=== PATIENT | female | born 1965 | race African-American/Black ===

== ENCOUNTER 2016-10-30 16:10 | Emergency (ER) | payer MEDICAID ==
[~2016-10-30] VITALS: Ht 160 cm; Wt 52.2 kg
[~2016-10-30 16:10] MED LIST: ARIMIDEX1 MG ORAL; AZITHROMYCIN250 MG ORAL; BACTRIM DS TAB1 EAC1 ORAL; DIFLUCAN100 MG ORAL; DOXYCYCLINE MO100 MG ORAL; EXEMESTANE25 MG PO; GABAPENTIN300 MG ORAL; METROGEL-VAGINA70 G1 VAGIN; NITROFURANTOIN100 M2 ORAL; PERCOCET 5-3251 EACH ORAL; PHENAZOPYRIDIN200 MG ORAL; PHENERGAN6.25 MG/5 ORAL; PREDNISONE20 MG ORAL; RANITIDINE HCL150 M2 PO; TRAMADOL HCL50 MG ORAL; [UNRECOGNIZED DRUG - OTHER]
[2016-10-30 16:27] VITALS: BP 122/76
--- NOTE | 2016-10-30 17:18 | Emergency Room Report ---
History of Present Illness General Chief Complaint: Upper Respiratory Illness Source: Patient, Medical Record Present Illness HPI 51-year-old female presents to emergency Department complaining of nasal congestion, with purulent rhinorrhea x7 days patient denies fever she reports chills. Patient reports using Sudafed in addition to Robitussin for congestion , no relief. Patient reports sinus tenderness. denies history of immune compromise, pt. also reports frontal sinus STEVENS 6/10 in severity. Pt. states it is difficult to sleep at night because she absolutely cant breathe out of her nose. Denies CP, Palpitations, LOC, AMS, dizziness, Changes in Vision, Sensation , paresthesias, or a sudden severe headache. Allergies: Coded Allergies: METOCLOPRAMIDE (Verified Adverse Reaction, Intermediate, 10/08/13) panick attack after taking reglan Patient History Past Medical History: see triage record Past Surgical History: none Pertinent Family History: none Last Menstrual Period: h/x of hysterectomy Now: No Immunizations: UTD Reviewed Nursing Documentation: PMH: Agreed, PSxH: Agreed Nursing Documentation-PMH Past Medical History: No History, Except For Hx Hypertension: No Hx Pacemaker: No Hx Asthma: No Hx Cancer: Yes - Left Breast Hx Dialysis: No Hx Cerebrovascular Accident: No Hx Seizures: No Review of Systems All Other Systems: negative except mentioned in HPI Physical Exam Vital Signs Date Time Temp Pulse Resp B/P Pulse Ox O2 Delivery O2 Flow Rate FiO2 10/30/16 16:16 97.9 63 16 122/76 96 Room Air Sp02 EP Interpretation: reviewed, normal General Appearance: no apparent distress, alert, GCS 15, non-toxic Head: normocephalic, atraumatic Eyes: bilateral eye PERRL, bilateral eye normal inspection ENT: hearing grossly normal, normal pharynx, no angioedema, normal voice, uvula midline, moist mucus membranes, nasal congestion - purulent d/c noted in the bilateral nares, pt. has maxillary sinus TTP, no frontal sinus TTP. , other - Pt also has cerumen impaction of the left canal, right canal is WNL Neck: full range of motion, no meningismus, no bony tend, supple/symm/no masses Respiratory: chest non-tender, lungs clear, normal breath sounds, no rhonchi, no respiratory distress, no retraction, no accessory muscle use, no wheezing, speaking full sentences Cardiovascular #1: regular rate, rhythm, no edema Cardiovascular #2: 2+ carotid (R), 2+ carotid (L), 2+ radial (R), 2+ radial (L) , 2+ dorsalis pedis (R), 2+ dorsalis pedis (L) Gastrointestinal: non tender, soft, no guarding, no rebound Rectal: deferred Genitourinary: normal inspection, no CVA tenderness Musculoskeletal: back normal, gait/station normal, normal range of motion, non- tender, no calf tenderness Neurologic: alert, oriented x3, responsive, motor strength/tone normal, sensory intact, speech normal Psychiatric: judgement/insight normal, memory normal, mood/affect normal, no suicidal/homicidal ideation Reflexes: 4+ bicep (R), 4+ bicep (L), 4+ tricep (R), 4+ tricep (L), 4+ knee (R) , 4+ knee (L) Skin: normal color, no rash, warm/dry, well hydrated Lymphatic: no adenopathy Medical Decision Making PA Attestation Dr. Young is my supervising Physician whom patient management has been discussed with. Diagnostic Impression: Primary Impression: Sinusitis nasal Qualified Codes: J01.10 - Acute frontal sinusitis, unspecified Additional Impression: Impacted cerumen of right ear ER Course Pt. presents to the ED c/o nasal congestion with TTP x 7 days no response from decongestants and conservative management, no fevers, reports chills. Ddx considered but are not limited to URI, rebound congestion, sinusitis. Vital signs: Pt. is afebrile, the remaining VS are WNL H&PE are most consistent with Sinusitis will treat with abx due to no response to conservative tx x 7 days, in addition to notable purulent nasal congestion noted on PE. ORDERS: none required at this time, the diagnosis is clinical ED INTERVENTIONS: None required at this time. -D/w pt to d/c use of decongestants as use for more than 3 days can cause rebound congestion. d/w pt to follow up with ENT specialist. DISCHARGE: At this time pt. is stable for d/c to home. Will provide printed patient care instructions, and any necessary prescriptions. Care plan and follow up instructions have been discussed with the patient prior to discharge. Last Vital Signs Date Time Temp Pulse Resp B/P Pulse Ox O2 Delivery O2 Flow Rate FiO2 10/30/16 16:27 97.9 16 122/76 96 Room Air 10/30/16 16:27 63 Disposition: HOME, SELF-CARE Condition: Stable Scripts Carbamide Peroxide (DEBROX) 15 Ml Drops 5 DROP BOTH EARS TWICE A DAY for 4 Days, #15 ML 0 Refills Prov: Susana Moseley 10/30/16 Mometasone Furoate (NASONEX) 17 Gm Powers.pump 2 SPRAYS NASAL DAILY, #17 GM 0 Refills Prov: Susana Moseley 10/30/16 Amoxicillin* (AMOXIL*) 500 Mg Capsule 500 MG ORAL BID for 10 Days, #20 CAP Prov: Susana Moseley 10/30/16 Patient Instructions: Sinusitis, Adult Additional Instructions: Take medications as directed. Follow up with PCP in 3-5 days Follow up with ENT specialist. Return sooner to ED if new symptoms occur, or current symptoms become worse. Susana Moseley Oct 30, 2016 17:18
[2016-10-30] MEDS ORDERED: AMOXICILLIN500 MG ORAL (17:21)
[2016-10-30] MEDS ORDERED: NASONEX17 GM NASAL (17:21)
[2016-10-30] MEDS ORDERED: DEBROX15 M1 BOTH EARS (17:21)
[2016-10-30 17:29] VITALS: BP 122/76
== END 2016-10-30 17:36 | disposition home or self-care (01) ==
LOC: EMR 17:10
DX: J01.10 Acute frontal sinusitis, unspecified (principal); H61.21 Impacted cerumen, right ear; Z90.710 Acquired absence of both cervix and uterus; Z88.8 Allergy status to other drugs, medicaments and biological substances; Z85.3 Personal history of malignant neoplasm of breast
CPT/HCPCS: 99282

== ENCOUNTER 2017-02-06 17:29 | Emergency (ER) | payer MEDICAID ==
[~2017-02-06] VITALS: Ht 157.5 cm; Wt 52.2 kg
[~2017-02-06 17:29] MED LIST changes: +AMOXICILLIN500 MG ORAL; +DEBROX15 M1 BOTH EARS; +NASONEX17 GM NASAL
[2017-02-06 17:51] VITALS: BP 145/83
[2017-02-06] MEDS: Norco 5mg/325mg tab ORAL ONE ×2 (18:06→18:12)
[2017-02-06 18:15] VITALS: BP 145/83
--- NOTE | 2017-02-08 07:34 | Emergency Room Report ---
History of Present Illness General Chief Complaint: Toothache Source: Patient Present Illness HPI 51-year-old female presents ED complaining of tooth pain. Patient states she had tooth extraction performed today a dentist. Had to extract from her right upper jaw. Patient states that dentist only offered her ibuprofen but she states she cannot take ibuprofen. Patient states she needs something stronger. States pain is throbbing, 9/10, nonradiating. No other aggravating or relieving factors. Denies any active bleeding. Denies any other associated symptoms Allergies: Coded Allergies: METOCLOPRAMIDE (Verified Adverse Reaction, Intermediate, 10/08/13) panick attack after taking reglan Patient History Past Medical History: GERD Past Surgical History: none Pertinent Family History: none Social History: Denies: alcohol use, drug use, smoking Last Menstrual Period: hyst Now: No Immunizations: UTD Reviewed Nursing Documentation: PMH: Agreed, PSxH: Agreed Nursing Documentation-PMH Past Medical History: No History, Except For Hx Hypertension: No Hx Pacemaker: No Hx Asthma: No Hx Cancer: Yes - Left Breast Hx Gastrointestinal Problems: Yes - hysterectomy, pancreatitis, gerd Hx Dialysis: No Hx Cerebrovascular Accident: No Hx Seizures: No Review of Systems All Other Systems: negative except mentioned in HPI Physical Exam Vital Signs Date Time Temp Pulse Resp B/P Pulse Ox O2 Delivery O2 Flow Rate FiO2 02/06/17 17:43 98.1 50 18 145/83 98 Room Air Sp02 EP Interpretation: reviewed, normal General Appearance: no apparent distress, alert, GCS 15, non-toxic Head: normocephalic Eyes: bilateral eye PERRL, bilateral eye normal inspection ENT: hearing grossly normal, normal pharynx, no angioedema, normal voice, other - s/p tooth extraction R upper jaw. no active bleeding. clot noted Neck: full range of motion, supple/symm/no masses Respiratory: normal inspection Cardiovascular #1: normal inspection Gastrointestinal: normal inspection Rectal: deferred Genitourinary: no CVA tenderness Musculoskeletal: normal inspection Neurologic: alert, oriented x3, responsive, motor strength/tone normal, sensory intact, speech normal Psychiatric: normal inspection Skin: normal inspection Lymphatic: normal inspection Medical Decision Making Diagnostic Impression: Primary Impression: S/P tooth extraction Qualified Codes: K08.409 - Partial loss of teeth, unspecified cause, unspecified class Additional Impression: Opioid dependence Qualified Codes: F11.20 - Opioid dependence, uncomplicated ER Course 51-year-old female presents ED complaining of tooth pain. s/p extraction Cracked tooth, dental abscess, cavity Patient placed on stretcher. After initial history, physical exam reveals a female in mild distress. There is evidence of a tooth extraction in the right upper jaw. Clot formation noted. No surrounding abscess. No induration or swelling. Patient states she cannot take Motrin. Patient states she took 4 extra strength Tylenol just prior to arrival. I cannot provide her with any additional Tylenol or related tylenol related products at this time I was prepared to provide her prescription given for pain medications but I reviewed CURES the patient is receiving nearly 90 tramadol tablets a month. I explained to patient I cannot right any additional prescriptions at this time. Patient understands and states she will go home Diagnosis- s/p tooth extraction. opioid dependence Stable and discharged to home prescription. Instructed to see dentist. Return to ED if symptoms recur or worse Last Vital Signs Date Time Temp Pulse Resp B/P Pulse Ox O2 Delivery O2 Flow Rate FiO2 02/06/17 18:15 98.1 18 145/83 98 Room Air 02/06/17 17:51 88 Status: improved Disposition: HOME, SELF-CARE Condition: Stable Referrals: NON PHYSICIAN (PCP) Patient Instructions: Dental Pain, Dental Dry Socket SHANNAN JACQUES M.D. Feb 08, 2017 07:34
== END 2017-02-06 18:15 | disposition home or self-care (01) ==
LOC: EMR 18:00
DX: K08.409 Partial loss of teeth, unspecified cause, unspecified class (principal); F11.20 Opioid dependence, uncomplicated; Z88.8 Allergy status to other drugs, medicaments and biological substances; K21.9 Gastro-esophageal reflux disease without esophagitis; Z90.710 Acquired absence of both cervix and uterus; Z85.3 Personal history of malignant neoplasm of breast
CPT/HCPCS: 99282

== ENCOUNTER 2017-10-26 15:15 | Emergency (ER) | payer MEDICAID ==
[~2017-10-26] VITALS: Ht 162.6 cm; Wt 59.0 kg
[2017-10-26] MEDS ORDERED: AZITHROMYCIN250 MG ORAL (16:35)
[2017-10-26] MEDS ORDERED: PROMETH-CODEIN 65 ML PO (16:36)
[2017-10-26 17:00] VITALS: BP 118/70
--- NOTE | 2017-10-27 00:28 | Emergency Room Report ---
History of Present Illness General Chief Complaint: Flu Like Symptoms Source: Patient Present Illness HPI Patient presents emergency department today complaint cough congestion fever going on for one day. She complains of mild sore throat as well associative with some runny stools. Denies any dysuria or frequency. No other complaints are noted. Symptoms noted to be moderate to severe. No other modifying factors. No other associated signs and symptoms. No other complaints were noted. Allergies: Coded Allergies: METOCLOPRAMIDE (Verified Adverse Reaction, Intermediate, 10/08/13) panick attack after taking reglan Patient History Past Medical History: GERD, other - pancreatitis Past Surgical History: none Pertinent Family History: none Social History: Denies: smoking, alcohol use, drug use Reviewed Nursing Documentation: PMH: Agreed, PSxH: Agreed Nursing Documentation-PMH Hx Hypertension: No Hx Pacemaker: No Hx Asthma: No Hx Cancer: Yes - Left Breast Hx Gastrointestinal Problems: Yes - hysterectomy, pancreatitis, gerd Hx Dialysis: No Hx Cerebrovascular Accident: No Hx Seizures: No Review of Systems All Other Systems: negative except mentioned in HPI Physical Exam Vital Signs Date Time Temp Pulse Resp B/P (MAP) Pulse Ox O2 Delivery O2 Flow Rate FiO2 10/26/17 15:26 98.1 96 20 121/74 99 Room Air Sp02 EP Interpretation: reviewed, normal General Appearance: normal inspection, well appearing, no apparent distress, alert Head: atraumatic Eyes: bilateral eye normal inspection ENT: normal ENT inspection, hearing grossly normal, normal voice Neck: normal inspection, full range of motion, supple, no bony tend Respiratory: normal inspection, lungs clear, normal breath sounds, no respiratory distress, no retraction, no wheezing Cardiovascular #1: regular rate, rhythm, no edema Gastrointestinal: normal inspection, normal bowel sounds, non tender, soft, no guarding, no hernia Genitourinary: no CVA tenderness Musculoskeletal: normal inspection, back normal, normal range of motion Neurologic: normal inspection, alert, responsive, speech normal Psychiatric: normal inspection, judgement/insight normal, mood/affect normal Skin: normal inspection, normal color, no rash Medical Decision Making Diagnostic Impression: Primary Impression: Cough Additional Impression: Influenza-like symptoms ER Course Pt presents emergency department today complaining cough congestion. Differential considerations include pneumonia, bronchitis, asthma, COPD just to name a few. Patient's exam consistent with sinusitis or bronchitis. Patient is advised to follow up with primary doctor in 2-3 days and return the emergency room for any worsening symptoms and as needed. Chest X-Ray Diagnostic Results Chest X-Ray Diagnostic Results : Chest X-Ray Ordered: Yes # of Views/Limited/Complete: 1 View Indication: Shortness of Breath EP Interpretation: Yes Interpretation: no consolidation, no effusion, no pneumothorax, no acute cardiopulmonary disease Impression: No acute disease Electronically Signed by: Electronically signed by Komal Sousa MD Last Vital Signs Date Time Temp Pulse Resp B/P (MAP) Pulse Ox O2 Delivery O2 Flow Rate FiO2 10/26/17 17:00 98.1 76 16 118/70 100 Room Air Status: improved Disposition: HOME, SELF-CARE Condition: Stable Scripts Promethazine HCl/Codeine (Prometh-Codein 6.25-10 mg/5 ml) 5 Ml Syrup 5 ML PO Q4HR for 7 Days, ML Prov: KOMAL SOUSA M.D. 10/26/17 Azithromycin* (ZITHROMAX*) 250 Mg Tablet 250 MG ORAL DAILY, #6 TAB 0 Refills Take two tablets by mouth today, then take one tablet by mouth daily for four days Prov: KOMAL SUOSA M.D. 10/26/17 Departure Forms: Return to Work Return to Work Date: Oct 29, 2017 Patient Instructions: Acute Bronchitis, [id number] KOMAL SOUSA M.D. Oct 27, 2017 00:28
== END 2017-10-26 17:00 | disposition home or self-care (01) ==
LOC: EMR 15:52
DX: J11.1 Influenza due to unidentified influenza virus with other respiratory manifestations (principal); K21.9 Gastro-esophageal reflux disease without esophagitis; Z85.3 Personal history of malignant neoplasm of breast
CPT/HCPCS: 71045; 99284

== ENCOUNTER 2017-10-31 16:36 | Emergency (ER) | payer MEDICAID ==
[~2017-10-31] VITALS: Ht 160 cm; Wt 49.9 kg
[~2017-10-31 16:36] MED LIST changes: +PROMETH-CODEIN 65 ML PO
[2017-10-31 16:50] VITALS: BP 108/68
--- NOTE | 2017-10-31 18:05 | Emergency Room Report ---
History of Present Illness General Chief Complaint: Flu Like Symptoms Present Illness HPI 52-year-old female presents to the emergency department complaining of persistent cough x10 days. Patient reports intermittently acting up mucus. Patient denies fevers or chills. She reports she recently finished a course of antibiotics, and was using cough syrup. Patient reports that she has a dry persistent cough that waxes and wanes. Denies high fevers, lethargy, neck stiffness, irritability, dehydration, N/V/D. Denies Cp, Palpitations, LOC, AMS, seizures, paresthesias, or changes in Hearing or vision, no Sudden severe STEVENS. Allergies: Coded Allergies: METOCLOPRAMIDE (Verified Adverse Reaction, Intermediate, 10/08/13) panick attack after taking reglan Patient History Past Medical History: see triage record Past Surgical History: none Pertinent Family History: none Immunizations: UTD Reviewed Nursing Documentation: PMH: Agreed, PSxH: Agreed Nursing Documentation-PMH Hx Hypertension: No Hx Pacemaker: No Hx Asthma: No Hx Cancer: Yes - Left Breast Hx Gastrointestinal Problems: Yes - hysterectomy, pancreatitis, gerd Hx Dialysis: No Hx Cerebrovascular Accident: No Hx Seizures: No Review of Systems All Other Systems: negative except mentioned in HPI Physical Exam Vital Signs Date Time Temp Pulse Resp B/P (MAP) Pulse Ox O2 Delivery O2 Flow Rate FiO2 10/31/17 16:50 98.4 69 20 108/68 99 Room Air Sp02 EP Interpretation: reviewed, normal General Appearance: no apparent distress, alert, GCS 15, non-toxic Head: normocephalic, atraumatic Eyes: bilateral eye normal inspection, bilateral eye PERRL ENT: hearing grossly normal, normal voice Neck: full range of motion Respiratory: chest non-tender, lungs clear, normal breath sounds, speaking full sentences, wheezing - scant/mild expiratory wheezing bilaterally, no ronchi Cardiovascular #1: regular rate, rhythm, normal capillary refill Rectal: deferred Genitourinary: normal inspection Musculoskeletal: back normal, gait/station normal, normal range of motion, non- tender Neurologic: alert, oriented x3, responsive, motor strength/tone normal, sensory intact, speech normal, grossly normal Psychiatric: judgement/insight normal Skin: normal color, no rash, warm/dry, well hydrated Lymphatic: no adenopathy Medical Decision Making PA Attestation Dr. reddy is my supervising Physician whom patient management has been discussed with. Diagnostic Impression: Primary Impression: Cough ER Course 52-year-old female presents to the emergency department complaining of persistent cough x10 days. Patient reports intermittently acting up mucus. Patient denies fevers or chills. She reports she recently finished a course of antibiotics, and was using cough syrup. Patient reports that she has a dry persistent cough that waxes and wanes. Denies high fevers, lethargy, neck stiffness, irritability, dehydration, N/V/D. Denies Cp, Palpitations, LOC, AMS, seizures, paresthesias, or changes in Hearing or vision, no Sudden severe STEVENS. Ddx considered but are not limited to URI, pneumonia, PE, strep pharyngitis, meningitis, bronchitis just to name a few. Vital signs: Pt.is afebrile VS are WNL H&PE are most consistent with bronchitis ORDERS: none required at this time, the diagnosis is clinical ED INTERVENTIONS: None required at this time. -I do not identify an emergent condition at this time. With current presentation , pt. is stable for close outpatient follow up and conservative treatment. D/ w pt. to return promptly to ED with worsening or new symptoms.- Pt. (and or responsible libertarian) verbalizes' understanding and agreement with proposed treatment plan.proposed treatment plan. DISCHARGE: At this time pt. is stable for d/c to home. Will provide printed patient care instructions, and any necessary prescriptions. Care plan and follow up instructions have been discussed with the patient prior to discharge. Chest X-Ray Diagnostic Results Chest X-Ray Diagnostic Results : Chest X-Ray Ordered: Yes # of Views/Limited/Complete: 1 View Indication: Chest Pain EP Interpretation: Yes ELEUTERIO Xray: Interpretation reviewed, by supervising MD, and agrees with findings. Interpretation: no consolidation, no effusion, no pneumothorax, no acute cardiopulmonary disease Impression: No acute disease Electronically Signed by: Susana Moseley PA-C Last Vital Signs Date Time Temp Pulse Resp B/P (MAP) Pulse Ox O2 Delivery O2 Flow Rate FiO2 10/31/17 17:20 69 20 Room Air 10/31/17 16:50 98.4 108/68 99 Disposition: HOME, SELF-CARE Condition: Stable Scripts Albuterol Sulfate* (ALBUTEROL SULFATE MDI*) 8.5 Gm Hfa.aer.ad 2 PUFF INH Q4H, #1 INH 0 Refills Prov: Susana Moseley 10/31/17 Benzonatate* (NATHANAEL MORATAYA*) 100 Mg Capsule 100 MG ORAL THREE TIMES A DAY for 7 Days, #21 PERLE Prov: Susana Moseley 10/31/17 Patient Instructions: Cough, Adult, [id number] Additional Instructions: Take medications as directed. Follow up with a Primary Care Provider in 3-5 days, even if your symptoms have resolved. --Please review list of primary care clinics, if you do not already have a primary care provider - Please note that this Emergency Department Report was dictated using [employer] control officer technology software, occasionally this can lead to erroneous entry secondary to interpretation by the dictation equipment. Susana Moseley Oct 31, 2017 18:05
[2017-10-31] MEDS ORDERED: ALBUTEROL SULF8.5 GM INH (18:06)
[2017-10-31] MEDS ORDERED: TESSALON PERLE100 MG ORAL (18:06)
[2017-10-31 18:25] VITALS: BP 108/68
--- NOTE | 2017-11-01 12:01 | Diagnostic Imaging Report ---
Indication: Dyspnea Comparison: 10/26/2017 A single view chest radiograph was obtained. Findings: Cardiomediastinal appearance is within normal limits for age. Pulmonary vascularity is appropriate. The diaphragmatic contour is smooth and costophrenic angles are sharp. No pleural effusions are identified. The bones are unremarkable. Impression: No acute findings
== END 2017-10-31 18:25 | disposition home or self-care (01) ==
LOC: EMR 18:20
DX: R05 Cough (principal); R07.9 Chest pain, unspecified; Z85.3 Personal history of malignant neoplasm of breast
CPT/HCPCS: 71045; 99284

== ENCOUNTER 2017-12-18 12:40 | Emergency (ER) | payer MEDICAID ==
[~2017-12-18] VITALS: Ht 160 cm; Wt 49.9 kg
[~2017-12-18 12:40] MED LIST changes: +ALBUTEROL SULF8.5 GM INH; +TESSALON PERLE100 MG ORAL
[2017-12-18 13:18] VITALS: BP 112/75
[2017-12-18 13:26] LABS: BASOPHILS % (AUTO) 1.6 % (0.0-2.0); EOSINOPHILS % (AUTO) 0.8 % (0.0-3.0); HEMATOCRIT 39.3 % (37.0-47.0); HEMOGLOBIN 12.5 G/DL (12.0-16.0); LYMPHOCYTES % (AUTO) 37.1 % (20.0-45.0); MEAN CORPUSCULAR VOLUME 105 FL (80-99); MONOCYTES % (AUTO) 6.4 % (1.0-10.0); NEUTROPHILS % (AUTO) 54.2 % (45.0-75.0); PLATELET COUNT 204 K/UL (150-450); RED BLOOD COUNT 3.73 M/UL (4.20-5.40); RED CELL DISTRIBUTION WIDTH 12.1 % (11.6-14.8); WHITE BLOOD COUNT 3.5 K/UL (4.8-10.8)
[2017-12-18 13:27] LABS: APPEARANCE,URINE SLIGHTLY CLOUDY; BILIRUBIN, URINE NEGATIVE (NEGATIVE); COLOR,URINE YELLOW; GLUCOSE, URINE (UA) NEGATIVE (NEGATIVE); KETONES,URINE NEGATIVE (NEGATIVE); LEUKOCYTE ESTERASE ,URINE 3+ (NEGATIVE); NITRITE,URINE NEGATIVE (NEGATIVE); PH,URINE 5 (4.5-8.0); PROTEIN,URINE 1+ (NEGATIVE); UROBILINOGEN,URINE NORMAL MG/DL (0.0-1.0)
--- NOTE | 2017-12-18 13:45 | Emergency Room Report ---
History of Present Illness General Chief Complaint: Abdominal Pain Source: Patient Present Illness HPI 52-year-old female presenting with one month of bowel movement changes. States that she intermittently gets diarrhea for a few days, then gets constipated, then gets diarrhea again. This is associated with some abdominal cramping. Patient states abdominal cramping gets relief with bowel movements. Intermittent nausea but no vomiting. No fever no chills. No black or bloody stools. States that she had a colonoscopy done 2 years ago which was normal Allergies: Coded Allergies: METOCLOPRAMIDE (Verified Adverse Reaction, Intermediate, 10/08/13) panick attack after taking reglan Patient History Past Medical History: see triage record Past Surgical History: none Pertinent Family History: none Last Menstrual Period: Hysterectomy 2012. Reviewed Nursing Documentation: PMH: Agreed, PSxH: Agreed Nursing Documentation-PMH Hx Hypertension: No Hx Pacemaker: No Hx Asthma: No Hx Cancer: Yes - Left Breast CA: Left breast Lumpectomy 2011 Hx Gastrointestinal Problems: Yes - Hysterectomy 2012, Pancreatitis, GERD Hx Dialysis: No Hx Cerebrovascular Accident: No Hx Seizures: No Review of Systems All Other Systems: negative except mentioned in HPI Physical Exam Vital Signs Date Time Temp Pulse Resp B/P (MAP) Pulse Ox O2 Delivery O2 Flow Rate FiO2 12/18/17 12:52 98.1 59 16 112/75 98 Room Air 98.1 Sp02 EP Interpretation: reviewed, normal General Appearance: normal inspection, well appearing, no apparent distress, alert, GCS 15, non-toxic Head: normocephalic, atraumatic Eyes: bilateral eye normal inspection, bilateral eye PERRL, bilateral eye EOMI ENT: normal ENT inspection, normal pharynx, normal voice, moist mucus membranes Neck: normal inspection, full range of motion, supple Respiratory: normal inspection, lungs clear, normal breath sounds, no respiratory distress, no retraction, no wheezing, speaking full sentences, chest symmetrical Cardiovascular #1: normal inspection, regular rate, rhythm, no edema, normal capillary refill Cardiovascular #2: 2+ radial (R), 2+ radial (L) Gastrointestinal: normal inspection, non tender, soft, non-distended, no guarding Musculoskeletal: normal inspection, back normal, normal range of motion, non- tender Neurologic: normal inspection, alert, oriented x3, responsive, motor strength/ tone normal, sensory intact, normal gait, speech normal Psychiatric: normal inspection, judgement/insight normal, memory normal Skin: normal inspection, normal color, no rash, warm/dry, well hydrated, normal turgor Medical Decision Making Diagnostic Impression: Primary Impression: Abdominal cramping ER Course 52-year-old female with intermittent diarrhea and constipation for one mo Differential Diagnosis: Gastritis, gastroenteritis, irritable bowel syndrome Plan: Basic labs, ER course: Patient has remained stable during ED stay. Appears well-hydrated, not in acute distress elevated lipase not adequate for pancreatitis. no epigastric pain. Disposition: Patient is to be discharged to home. Patient is instructed to follow up with gastroenterology in one week Strict return precautions discussed with patient such as fever, chills, worsening/severe abdominal pain, nausea, vomiting, black or bloody stools, which may indicate severe illness. Patient verbalizes understanding and agrees with plan. Please note that this Emergency Department Report was dictated using Splice Machinegravel hauler technology software, occasionally this can lead to erroneous entry secondary to interpretation by the dictation equipment Laboratory Tests Test 12/18/17 13:05 White Blood Count 3.5 K/UL (4.8-10.8) L Red Blood Count 3.73 M/UL (4.20-5.40) L Hemoglobin 12.5 G/DL (12.0-16.0) Hematocrit 39.3 % (37.0-47.0) Mean Corpuscular Volume 105 FL (80-99) H Mean Corpuscular Hemoglobin 33.4 PG (27.0-31.0) H Mean Corpuscular Hemoglobin Concent 31.7 G/DL (32.0-36.0) L Red Cell Distribution Width 12.1 % (11.6-14.8) Platelet Count 204 K/UL (150-450) Mean Platelet Volume 8.0 FL (6.5-10.1) Neutrophils (%) (Auto) 54.2 % (45.0-75.0) Lymphocytes (%) (Auto) 37.1 % (20.0-45.0) Monocytes (%) (Auto) 6.4 % (1.0-10.0) Eosinophils (%) (Auto) 0.8 % (0.0-3.0) Basophils (%) (Auto) 1.6 % (0.0-2.0) Urine Color Yellow Urine Appearance Slightly cloudy Urine pH 5 (4.5-8.0) Urine Specific [place] 1.030 (1.005-1.035) Urine Protein 1+ (NEGATIVE) H Urine Glucose (UA) Negative (NEGATIVE) Urine Ketones Negative (NEGATIVE) Urine Occult Blood 1+ (NEGATIVE) H Urine Nitrite Negative (NEGATIVE) Urine Bilirubin Negative (NEGATIVE) Urine Urobilinogen Normal MG/DL (0.0-1.0) Urine Leukocyte Esterase 3+ (NEGATIVE) H Urine RBC 2-4 /HPF (0 - 2) H Urine WBC 5-10 /HPF (0 - 2) H Urine Squamous Epithelial Cells Few /LPF (NONE/OCC) Urine Bacteria Few /HPF (NONE) Sodium Level 143 MMOL/L (136-145) Potassium Level 3.1 MMOL/L (3.5-5.1) L Chloride Level 104 MMOL/L (98-107) Carbon Dioxide Level 32 MMOL/L (21-32) Anion Gap 7 mmol/L (5-15) Blood Urea Nitrogen 15 mg/dL (7-18) Creatinine 0.7 MG/DL (0.55-1.30) Estimate Glomerular Filtration Rate > 60 mL/min (>60) Glucose Level 92 MG/DL (74-106) Calcium Level 9.6 MG/DL (8.5-10.1) Total Bilirubin 0.4 MG/DL (0.2-1.0) Aspartate Amino Transferase (AST) 19 U/L (15-37) Alanine Aminotransferase (ALT) 26 U/L (12-78) Alkaline Phosphatase 42 U/L (46-116) L Total Protein 7.6 G/DL (6.4-8.2) Albumin 4.6 G/DL (3.4-5.0) Globulin 3.0 g/dL Albumin/Globulin Ratio 1.5 (1.0-2.7) Lipase 564 U/L (73-393) H Last Vital Signs Date Time Temp Pulse Resp B/P (MAP) Pulse Ox O2 Delivery O2 Flow Rate FiO2 12/18/17 13:18 98.1 72 16 112/75 98 Room Air 98.1 Disposition: HOME, SELF-CARE Condition: Improved Patient Instructions: Abdominal Pain, Adult Additional Instructions: PLEASE SEE AUTOMOTIVE ENGINEERING TECHNICIAN IN 1 WEEK Cesar Sky M.D. Dec 18, 2017 13:45
[2017-12-18 14:04] LABS: ANION GAP 7 mmol/L (5-15); BLOOD UREA NITROGEN 15 mg/dL (7-18); CALCIUM 9.6 MG/DL (8.5-10.1); CARBON DIOXIDE 32 MMOL/L (21-32); CHLORIDE 104 MMOL/L (98-107); CREATININE 0.7 MG/DL (0.55-1.30); POTASSIUM 3.1 MMOL/L (3.5-5.1); SODIUM 143 MMOL/L (136-145)
[2017-12-18 14:07] LABS: ALANINE AMINOTRANSFERASE 26 U/L (12-78); ALBUMIN 4.6 G/DL (3.4-5.0); ALBUMIN/GLOBULIN RATIO 1.5 (1.0-2.7); ALKALINE PHOSPHATASE 42 U/L (46-116); ASPARTATE AMINO TRANSFERASE 19 U/L (15-37); BILIRUBIN,TOTAL 0.4 MG/DL (0.2-1.0)
[2017-12-18 14:13] VITALS: BP 118/76
[2017-12-18 14:36] VITALS: BP 118/76
== END 2017-12-18 14:41 | disposition home or self-care (01) ==
LOC: EMR 13:00
DX: R10.9 Unspecified abdominal pain (principal); R19.7 Diarrhea, unspecified; Z85.3 Personal history of malignant neoplasm of breast; Z88.8 Allergy status to other drugs, medicaments and biological substances
CPT/HCPCS: 36415; 80053; 81003; 83690; 85025; 99283

== ENCOUNTER 2018-07-25 13:24 | Emergency (ER) | payer MEDICAID ==
[~2018-07-25] VITALS: Ht 160 cm; Wt 47.6 kg
[2018-07-25 13:40] VITALS: BP 112/64
[2018-07-25] MEDS ORDERED: Ketorolac 30mg Inj IM ONE (13:45)
--- NOTE | 2018-07-25 14:03 | Emergency Room Report ---
History of Present Illness General Chief Complaint: Pain Source: Patient Present Illness HPI 53-year-old female presents to the emergency department complaining of 5 out of 10 in severity pain localized to the base of the left great toe with new onset of pain to the fall of the left foot. Patient reports history of arthritis in the left toe however she states she has been doing a lot of running lately and is now experiencing pain at the ball of her foot. Patient reports tenderness she denies bruising she denies open wounds or blisters. She does are inquiring about steroid injections. denies acute trauma or fall other than repeptitive trauma from running. Denies swelling, erythema or warmth. Allergies: Coded Allergies: METOCLOPRAMIDE (Verified Adverse Reaction, Intermediate, 10/08/13) panick attack after taking reglan Patient History Past Medical History: see triage record Past Surgical History: none Pertinent Family History: none Now: No Reviewed Nursing Documentation: PMH: Agreed; PSxH: Agreed Nursing Documentation-PMH Hx Hypertension: No Hx Pacemaker: No Hx Asthma: No Hx Cancer: Yes - Left Breast CA: Left breast Lumpectomy 2011 Hx Gastrointestinal Problems: Yes - Hysterectomy 2012, Pancreatitis, GERD Hx Dialysis: No Hx Cerebrovascular Accident: No Hx Seizures: No Review of Systems All Other Systems: negative except mentioned in HPI Physical Exam Vital Signs Date Time Temp Pulse Resp B/P (MAP) Pulse Ox O2 Delivery O2 Flow Rate FiO2 07/25/18 13:28 98.1 67 18 112/64 95 Room Air 98.1 Sp02 EP Interpretation: reviewed, normal General Appearance: no apparent distress, alert, GCS 15, non-toxic Head: normocephalic, atraumatic ENT: hearing grossly normal, normal voice Neck: full range of motion Respiratory: lungs clear, normal breath sounds, speaking full sentences Cardiovascular #1: regular rate, rhythm Musculoskeletal: back normal, gait/station normal, normal range of motion, tender - TTP to the plantar aspect of the left foot near base of the great toe, TTP to the ball of the foot, no obvious deformities, left great toe nail is surgically removed. Neurologic: alert, oriented x3, responsive, motor strength/tone normal, sensory intact, speech normal, grossly normal Psychiatric: judgement/insight normal Skin: normal color, no rash, warm/dry, well hydrated Lymphatic: no adenopathy Medical Decision Making PA Attestation Dr. reddy is my supervising Physician whom patient management has been discussed with. Diagnostic Impression: Primary Impression: Foot pain, left ER Course 53-year-old female presents to the emergency department complaining of 5 out of 10 in severity pain localized to the base of the left great toe with new onset of pain to the fall of the left foot. Patient reports history of arthritis in the left toe however she states she has been doing a lot of running lately and is now experiencing pain at the ball of her foot. Patient reports tenderness she denies bruising she denies open wounds or blisters. She does are inquiring about steroid injections. denies acute trauma or fall other than repeptitive trauma from running. Denies swelling, erythema or warmth. Ddx considered but are not limited to Fracture, dislocation, contusion, Sprain/ Strain/Spasm.. Vital signs: are WNL, pt. is afebrile H&PE are most consistent with musculoskeletal injury will perform imaging to r/ o fractures/dislocations. ORDERS: - X-ray left foot 3 views - negative for fx, Dislocation, or significant soft tissue injury, per preliminary read in ED, and signed by ELEUTERIO Moseley, my supervising physician has reviewed, and agrees with my interpretation. ED INTERVENTIONS: - Toradol IM DISCHARGE: At this time pt. is stable for d/c to home. Will provide printed patient care instructions, and any necessary prescriptions. Care plan and follow up instructions have been discussed with the patient prior to discharge. Other X-Ray Diagnostic Results Other X-Ray Diagnostic Results : X-Ray ordered: Left Foot # of Views/Limited Vs Complete: 3 View Indication: Pain EP Interpretation: Yes PA Xray: Interpretation reviewed, by supervising MD, and agrees with findings. Interpretation: no dislocation, no soft tissue swelling, no fractures Impression: No acute disease Electronically Signed by: Susana Moseley PA-C Last Vital Signs Date Time Temp Pulse Resp B/P (MAP) Pulse Ox O2 Delivery O2 Flow Rate FiO2 07/25/18 13:49 98.1 07/25/18 13:40 64 18 112/64 95 Room Air Disposition: HOME, SELF-CARE Condition: Stable Scripts Ibuprofen* (MOTRIN*) 600 Mg Tablet 600 MG ORAL THREE TIMES A DAY, #30 TAB 0 Refills Prov: Susana Moseley 07/25/18 Referrals: [facility] [place] (PCP) Patient Instructions: Foot Sprain Additional Instructions: Take medications as directed. Follow up with a Primary Care Provider in 3-5 days, even if your symptoms have resolved. --Please review list of primary care clinics, if you do not already have a primary care provider Return sooner to ED if new symptoms occur, or current symptoms become worse. - Please note that this Emergency Department Report was dictated using [email or web address] die casting technology software, occasionally this can lead to erroneous entry secondary to interpretation by the dictation equipment. Susana Moseley Jul 25, 2018 14:03
[2018-07-25] MEDS ORDERED: IBUPROFEN600 MG ORAL (14:34)
[2018-07-25 14:46] VITALS: BP 112/64
--- NOTE | 2018-07-25 14:51 | Diagnostic Imaging Report ---
Indication: Foot pain Comparison: None Findings: 3 views of the left foot were obtained. No acute fractures, malalignment, erosions or periostitis are identified. Soft tissues are unremarkable. Impression: No acute findings
== END 2018-07-25 14:53 | disposition home or self-care (01) ==
LOC: EMR 13:45
DX: M79.672 Pain in left foot (principal); K21.9 Gastro-esophageal reflux disease without esophagitis; Z85.3 Personal history of malignant neoplasm of breast; Z90.710 Acquired absence of both cervix and uterus
CPT/HCPCS: 73630; 96372; 99283; J1885

== ENCOUNTER 2018-09-14 16:07 | Emergency (ER) | payer MEDICAID ==
[~2018-09-14] VITALS: Ht 160 cm; Wt 47.6 kg
[~2018-09-14 16:07] MED LIST changes: +IBUPROFEN600 MG ORAL
[2018-09-14 16:26] VITALS: BP 108/69
--- NOTE | 2018-09-14 16:50 | Emergency Room Report ---
History of Present Illness General Chief Complaint: Flu Like Symptoms Source: Patient Present Illness HPI 53-year-old female presents to the emergency department complaining of nasal congestion with sinus pressure bilaterally across the front of her face. Patient reports persistent sneezing in addition to watery eyes. Patient denies sore throat, headache, fevers, chills, photophobia, cough, neck pain or stiffness. Patient reports she has had history of hayfever in the past which felt similar. Patient denies pain at this time. She denies unilateral symptoms. She states that she has been using OTC medication such as Vicks, Claritin, and DayQuil with no relief. pt. reports symptoms worse at night and making it difficult to sleep as she cant breathe through her nose. Pt. denies purulent drainage, and reports rhinorrhea is minimal. Allergies: Coded Allergies: METOCLOPRAMIDE (Verified Adverse Reaction, Intermediate, 10/08/13) panick attack after taking reglan Patient History Past Medical History: see triage record Past Surgical History: none Pertinent Family History: none Last Menstrual Period: historectomy 2013 Now: No Immunizations: UTD Reviewed Nursing Documentation: PMH: Agreed; PSxH: Agreed Nursing Documentation-PMH Hx Hypertension: No Hx Pacemaker: No Hx Asthma: No Hx Cancer: Yes - Left Breast CA: Left breast Lumpectomy 2011 Hx Gastrointestinal Problems: Yes - Hysterectomy 2012, Pancreatitis, GERD Hx Dialysis: No Hx Cerebrovascular Accident: No Hx Seizures: No Review of Systems All Other Systems: negative except mentioned in HPI Physical Exam Vital Signs Date Time Temp Pulse Resp B/P (MAP) Pulse Ox O2 Delivery O2 Flow Rate FiO2 09/14/18 16:18 66 18 108/69 99 Room Air 09/14/18 16:26 98.1 09/14/18 16:26 99 Sp02 EP Interpretation: reviewed, normal General Appearance: no apparent distress, alert, GCS 15, non-toxic Head: normocephalic, atraumatic Eyes: bilateral eye normal inspection, bilateral eye PERRL ENT: hearing grossly normal, normal pharynx, no angioedema, normal voice, TMs + canals normal, uvula midline, moist mucus membranes, nasal congestion Neck: full range of motion Respiratory: lungs clear, normal breath sounds, no respiratory distress, no accessory muscle use, no wheezing, speaking full sentences Cardiovascular #1: regular rate, rhythm, no edema Musculoskeletal: back normal, gait/station normal, normal range of motion, non- tender Neurologic: alert, oriented x3, responsive, motor strength/tone normal, sensory intact, speech normal, grossly normal Psychiatric: judgement/insight normal Skin: normal color, no rash, warm/dry, well hydrated Lymphatic: no adenopathy Medical Decision Making PA Attestation Dr. Collins is my supervising Physician whom patient management has been discussed with. Diagnostic Impression: Primary Impression: Rhinitis, allergic Qualified Codes: J30.9 - Allergic rhinitis, unspecified Additional Impression: Congestion of nasal sinus ER Course 53-year-old female presents to the emergency department complaining of nasal congestion with sinus pressure bilaterally across the front of her face. Patient reports persistent sneezing in addition to watery eyes. Patient denies sore throat, headache, fevers, chills, photophobia, cough, neck pain or stiffness. Patient reports she has had history of hayfever in the past which felt similar. Patient denies pain at this time. She denies unilateral symptoms. She states that she has been using OTC medication such as Vicks, Claritin, and DayQuil with no relief. pt. reports symptoms worse at night and making it difficult to sleep as she cant breathe through her nose. Pt. denies purulent drainage, and reports rhinorrhea is minimal. Ddx considered but are not limited to: Rhinitis, Nasal Congestion, Sinusitis, FB , URI just to name a few. Vital signs: are WNL, pt. is afebrile H&PE are most consistent with: Rhinitis with nasal congestion ORDERS: None required at this time as the diagnosis is clinical ED INTERVENTIONS: none required at this time. DISCHARGE: At this time pt. is stable for d/c to home. Will provide printed patient care instructions, and any necessary prescriptions. Care plan and follow up instructions have been discussed with the patient prior to discharge. Last Vital Signs Date Time Temp Pulse Resp B/P (MAP) Pulse Ox O2 Delivery O2 Flow Rate FiO2 09/14/18 16:26 66 18 Room Air 99 09/14/18 16:26 98.1 108/69 99 Disposition: HOME, SELF-CARE Condition: Stable Scripts Oxymetazoline HCl (Afrin) 15 Ml [place] 2 SPRAYS NASAL TWICE A DAY for 3 Days, #30 SPRAY Prov: Susana Moseley 09/14/18 Cetirizine Hcl/Pseudoephedrine (ZYRTEC-D TABLET) 1 Each Tab.er.12h 1 EACH ORAL Q12HR for 7 Days, #14 TAB Prov: Susana Moseley 09/14/18 Referrals: [facility] [place] (PCP) Patient Instructions: Allergic Rhinitis Additional Instructions: DO NOT USE FOR MORE THAN 3 CONSECUTIVE DAYS. Take medications as directed. Follow up with a Primary Care Provider in 3-5 days, even if your symptoms have resolved. --Please review list of primary care clinics, if you do not already have a primary care provider Return sooner to ED if new symptoms occur, or current symptoms become worse. - Please note that this Emergency Department Report was dictated using Qbakapaper folder technology software, occasionally this can lead to erroneous entry secondary to interpretation by the dictation equipment. Susana Moseley Sep 14, 2018 16:50
[2018-09-14] MEDS ORDERED: AFRIN NASAL SPR30 ML NASAL (16:56)
[2018-09-14] MEDS ORDERED: ZYRTEC-D TABLE1 EACH ORAL (16:56)
[2018-09-14 17:13] VITALS: BP 112/72
[2018-09-14 17:17] VITALS: BP 112/72
== END 2018-09-14 17:10 | disposition home or self-care (01) ==
LOC: EMR 16:40
DX: J30.9 Allergic rhinitis, unspecified (principal); K21.9 Gastro-esophageal reflux disease without esophagitis; Z85.3 Personal history of malignant neoplasm of breast; Z90.710 Acquired absence of both cervix and uterus
CPT/HCPCS: 99283

== ENCOUNTER 2019-03-19 18:01 | Emergency (ER) | payer MEDICAID ==
[~2019-03-19] VITALS: Ht 160 cm; Wt 49.9 kg
[~2019-03-19 18:01] MED LIST changes: +AFRIN NASAL SPR30 ML NASAL; +ZYRTEC-D TABLE1 EACH ORAL
[2019-03-19 18:16] VITALS: BP 111/73
[2019-03-19] MEDS ORDERED: TYLENOL EXTRA500 MG ORAL (18:32)
[2019-03-19] MEDS ORDERED: AMOXICILLIN500 MG ORAL (18:32)
[2019-03-19 18:45] VITALS: BP 111/73
--- NOTE | 2019-03-19 18:47 | NUR ---
ER DISCHARGE NOTE: Patient is cleared to be discharged per ERMD, pt is aox4, on room air, with stable vital signs. pt was given dc and prescription instructions, pt was able to verbalize understanding, pt is able to ambulate with steady gait. pt took all belongings.
--- NOTE | 2019-03-21 07:07 | Emergency Room Report ---
History of Present Illness General Chief Complaint: Toothache Source: Patient Present Illness HPI 53-year-old female presents ED for evaluation. Complaining of toothache which started this morning. Notes pain in her right upper jaw radiating to her ear. Pain is sharp, 8 out of 10. States that when this happened previously she was prescribed antibiotics and it resolved. Denies fevers or chills. Denies neck pain or neck stiffness. Denies sore throat or cough. No other aggravating relieving factors. Denies any other associated symptoms Allergies: Coded Allergies: METOCLOPRAMIDE (Verified Adverse Reaction, Intermediate, 10/08/13) panick attack after taking reglan Patient History Past Medical History: GERD, other - L breast ca Past Surgical History: none Pertinent Family History: none Social History: Denies: smoking, alcohol use, drug use Last Menstrual Period: hyst Now: No Immunizations: UTD Reviewed Nursing Documentation: PMH: Agreed; PSxH: Agreed Nursing Documentation-PMH Past Medical History: No History, Except For Hx Hypertension: No Hx Pacemaker: No Hx Asthma: No Hx Cancer: Yes - Left Breast CA: Left breast Lumpectomy 2011 Hx Gastrointestinal Problems: Yes - Hysterectomy 2013, Pancreatitis, GERD Hx Dialysis: No Hx Cerebrovascular Accident: No Hx Seizures: No Review of Systems All Other Systems: negative except mentioned in HPI Physical Exam Vital Signs Date Time Temp Pulse Resp B/P (MAP) Pulse Ox O2 Delivery O2 Flow Rate FiO2 03/19/19 18:11 98.2 64 20 111/73 (86) 97 Room Air Sp02 EP Interpretation: reviewed, normal General Appearance: no apparent distress, alert, GCS 15, non-toxic Head: normocephalic Eyes: bilateral eye normal inspection, bilateral eye PERRL ENT: hearing grossly normal, normal pharynx, no angioedema, normal voice, TMs + canals normal, uvula midline, other - multiple dental caries Neck: normal inspection Respiratory: normal inspection Cardiovascular #1: normal inspection Gastrointestinal: normal inspection Rectal: deferred Genitourinary: no CVA tenderness Musculoskeletal: normal inspection Neurologic: alert, oriented x3, responsive, motor strength/tone normal, sensory intact, speech normal Psychiatric: normal inspection Skin: normal inspection Lymphatic: normal inspection Medical Decision Making Diagnostic Impression: Primary Impression: Toothache Additional Impression: Opioid dependence Qualified Codes: F11.29 - Opioid dependence with unspecified opioid-induced disorder ER Course 53 y F presents to ED c/o tooth pain Cracked tooth, dental abscess, cavity Patient placed on stretcher. After initial history, physical exam reveals a female in mild distress. There are multiple dental caries but no obvious dental abscess or infected tooth. Remainder of exam unremarkable. Discussed findings with patient. We'll discharge with antibiotics on review of CURES there is concern for some monthly narcotic prescriptions Safe for discharge or close outpatient follow-up. I'll provide dental referrals Diagnosis- toothache, opioid dependence Stable and discharged to home prescription for amoxicillin, tylneol. Instructed to see dentist as a walk-in this week. Return to ED if symptoms recur or worse Last Vital Signs Date Time Temp Pulse Resp B/P (MAP) Pulse Ox O2 Delivery O2 Flow Rate FiO2 03/19/19 18:45 98.2 80 20 111/73 97 Room Air Status: improved Disposition: HOME, SELF-CARE Condition: Stable Scripts Acetaminophen* (TYLENOL EXTRA STRENGTH*) 500 Mg Tablet 500 MG ORAL Q8H PRN for Prn Headache/Temp > 101, #30 TAB 0 Refills Prov: Eyal Castelan MD 03/19/19 Amoxicillin* (AMOXIL*) 500 Mg Capsule 500 MG ORAL THREE TIMES A DAY, #21 CAP Prov: Eyal Castelan MD 03/19/19 Referrals: [facility] [place] (PCP) [facility](age 2-12) - Orthodontic Clinic - Hours: Sun,Sun,, 8:15am and 1pm (new patient screening), . 1pm. Emergency clinic Sunday - Sunday 8:30am and 1pm, Tues. 1pm. *Call to check if clinic is open; No appointment necessary for the first visit ( new patient screening), Arrive 15-30 minutes early as it is first come, first serve. Patient Instructions: Dental Pain Eyal Castelan MD March 21, 2019 07:07
== END 2019-03-19 18:50 | disposition home or self-care (01) ==
LOC: EMR 18:40
DX: K08.89 Other specified disorders of teeth and supporting structures (principal); F11.29 Opioid dependence with unspecified opioid-induced disorder; Z88.8 Allergy status to other drugs, medicaments and biological substances; K21.9 Gastro-esophageal reflux disease without esophagitis; Z85.3 Personal history of malignant neoplasm of breast; Z90.710 Acquired absence of both cervix and uterus; K02.9 Dental caries, unspecified
CPT/HCPCS: 99282

== ENCOUNTER 2019-05-29 13:14 | Emergency (ER) | payer MEDICAID ==
[~2019-05-29] VITALS: Ht 160 cm; Wt 52.2 kg
[~2019-05-29 13:14] MED LIST changes: +TYLENOL EXTRA500 MG ORAL
--- NOTE | 2019-05-29 13:37 | NUR ---
ED Nurse Note:pt rleates she has frequent uti. relates feeling of needing to void immediately after voiding and uncomfortable sensation post void x 3 weeks. no hematuria no vaginal c/o.
[2019-05-29 14:13] LABS: APPEARANCE,URINE SLIGHTLY CLOUDY; BILIRUBIN, URINE NEGATIVE (NEGATIVE); GLUCOSE, URINE (UA) NEGATIVE (NEGATIVE); KETONES,URINE NEGATIVE (NEGATIVE); LEUKOCYTE ESTERASE ,URINE 2+ (NEGATIVE); NITRITE,URINE NEGATIVE (NEGATIVE); PH,URINE 6 (4.5-8.0); PROTEIN,URINE 1+ (NEGATIVE); UROBILINOGEN,URINE 1 MG/DL (0.0-1.0)
[2019-05-29 14:18] LABS: COLOR,URINE YELLOW
--- NOTE | 2019-05-29 14:27 | Emergency Room Report ---
History of Present Illness General Chief Complaint: Female Urogenital Problems Source: Patient Present Illness HPI 54-year-old postmenopausal female with no significant past medical history here complaining of 3 weeks of urinary frequency, urgency, and pain after voiding. Patient denies flank pain, suprapubic pain, nausea vomiting, fever and chills. Has not taken medication for her symptoms. Denies hematuria or vaginal spotting. Denies having frequent urinary tract infections. Denies chest pain, shortness of breath, palpitation, and other associated symptoms. Allergies: Coded Allergies: METOCLOPRAMIDE (Verified Adverse Reaction, Intermediate, 10/08/13) panick attack after taking reglan Patient History Past Medical History: see triage record Past Surgical History: unable to obtain Pertinent Family History: none Last Menstrual Period: hyst Now: No Immunizations: UTD Reviewed Nursing Documentation: PMH: Agreed; PSxH: Agreed Nursing Documentation-PMH Past Medical History: No History, Except For Hx Hypertension: No Hx Pacemaker: No Hx Asthma: No Hx Cancer: Yes - Left Breast CA: Left breast Lumpectomy 2011 Hx Gastrointestinal Problems: Yes - Hysterectomy 2012, Pancreatitis, GERD Hx Dialysis: No Hx Cerebrovascular Accident: No Hx Seizures: No Review of Systems All Other Systems: negative except mentioned in HPI Physical Exam Vital Signs Date Time Temp Pulse Resp B/P (MAP) Pulse Ox O2 Delivery O2 Flow Rate FiO2 05/29/19 13:25 98.6 55 19 136/83 (100) 99 Room Air Sp02 EP Interpretation: reviewed, normal General Appearance: normal inspection, well appearing, no apparent distress, alert, GCS 15 Head: normocephalic, atraumatic Eyes: bilateral eye normal inspection, bilateral eye PERRL ENT: normal ENT inspection, hearing grossly normal, normal pharynx Neck: normal inspection, full range of motion, supple Respiratory: normal inspection, chest non-tender, lungs clear, no retraction, no wheezing Cardiovascular #1: normal inspection, no edema, no murmur, normal capillary refill Gastrointestinal: normal inspection, non tender, soft Genitourinary: no CVA tenderness Neurologic: normal inspection, alert, oriented x3 Psychiatric: normal inspection, judgement/insight normal Skin: no rash Lymphatic: normal inspection, no adenopathy Medical Decision Making PA Attestation All diagnoses and treatment plans were reviewed and discussed with my supervising physician Dr. Luu Diagnostic Impression: Primary Impression: UTI (urinary tract infection) ER Course 54-year-old postmenopausal female with no significant past medical history here complaining of 3 weeks of urinary frequency, urgency, and pain after voiding. Patient denies flank pain, suprapubic pain, nausea vomiting, fever and chills. Has not taken medication for her symptoms. Denies hematuria or vaginal spotting. Denies having frequent urinary tract infections. Denies chest pain, shortness of breath, palpitation, and other associated symptoms. Ddx considered but are not limited to: UTI, pyelonephritis, urinary incontinence , prolapsed bladder Vital signs: are WNL, pt. is afebrile H&PE are most consistent with: Uncomplicated UTI ORDERS: UA, urine cx, Macrobid ED INTERVENTIONS: None required at this time. DISCHARGE: At this time pt. is stable for d/c to home. Will provide printed patient care instructions, and any necessary prescriptions. Care plan and follow up instructions have been discussed with the patient prior to discharge. Patient to follow-up with her primary care provider if symptoms continue increase oral hydration return to emergency room if worsening symptoms. Last Vital Signs Date Time Temp Pulse Resp B/P (MAP) Pulse Ox O2 Delivery O2 Flow Rate FiO2 05/29/19 13:25 98.6 55 19 136/83 (100) 99 Room Air Disposition: HOME, SELF-CARE Condition: Stable Scripts Nitrofurantoin Monohyd/M-Cryst* (MACROBID 100 MG*) 100 Mg Capsule 100 MG ORAL EVERY 12 HOURS for 7 Days, #14 CAP Prov: Elie Jackson 05/29/19 Patient Instructions: Urinary Tract Infection Additional Instructions: Take medication as directed follow-up with your primary care provider if symptoms continue if fever and chills, flank pain return to the emergency room. Elie Jackson May 29, 2019 14:27
[2019-05-29] MEDS ORDERED: NITROFURANTOIN100 M2 ORAL (14:30)
[2019-05-29 14:42] VITALS: BP 136/83
--- NOTE | 2019-05-29 14:42 | NUR ---
ER DISCHARGE NOTE: Patient is cleared to be discharged per ERMD, pt is aox4, on room air, with stable vital signs. pt was given dc and prescription instructions, pt was able to verbalize understanding, pt id band removed without complications. pt is able to ambulate with steady gait. pt took all belongings.
== END 2019-05-29 14:42 | disposition home or self-care (01) ==
LOC: EMR 14:25
DX: N39.0 Urinary tract infection, site not specified (principal); K21.9 Gastro-esophageal reflux disease without esophagitis; Z85.3 Personal history of malignant neoplasm of breast; Z90.710 Acquired absence of both cervix and uterus
CPT/HCPCS: 81001; 87086; 99283

== ENCOUNTER 2020-07-14 15:41 | Emergency (ER) | payer MEDICAID ==
[~2020-07-14] VITALS: Ht 160 cm; Wt 49.9 kg
--- NOTE | 2020-07-14 16:02 | NUR ---
ED Nurse Note: pt presents to ED c/o R earache x 5 days, pt reports the pain comes and goes and when it is there it is "sharp" in nature. denies any pain currently, denies any drainage coming from ear, no loss of balance, STEVENS or vertigo at this time. pt mentions that she put a q-tip in affected ear this AM and that it caused "more px than nl"
[2020-07-14 16:04] VITALS: BP 144/72
--- NOTE | 2020-07-14 16:18 | Emergency Room Report ---
History of Present Illness General Chief Complaint: Earache Present Illness HPI 55 YO Female presents to the ED c/o 05/31 in severity left ear pain that has progressed over 5 days. Pt. reports she has been taking Tylenol PO and it helps but her pain returns. Pt. reports she attempted to use a q-tip but did not have any relief, just exacerbation of her pain. Pt. states she has not measured any fevers. She reports chills. She denies neck pain or stiffness. Pt. denies STEVENS. She denies swollen tender lymph nodes. Pt. Denies external ear tenderness. She denies d/c. She denies loss of hearing in the affected ear. Allergies: Coded Allergies: METOCLOPRAMIDE (Verified Adverse Reaction, Intermediate, 10/08/13) panick attack after taking reglan COVID-19 Screening Contact w/high risk pt: No Experienced COVID-19 symptoms?: No COVID-19 Testing performed RUBBISH COLLECTOR: No Patient History Past Medical History: see triage record Past Surgical History: none Pertinent Family History: none Now: No Reviewed Nursing Documentation: PMH: Agreed; PSxH: Agreed Nursing Documentation-PMH Hx Hypertension: No Hx Pacemaker: No Hx Asthma: No Hx Cancer: Yes - Left Breast CA: Left breast Lumpectomy 2011 Hx Gastrointestinal Problems: Yes - Hysterectomy 2012, Pancreatitis, GERD Hx Dialysis: No Hx Cerebrovascular Accident: No Hx Seizures: No Review of Systems All Other Systems: negative except mentioned in HPI Physical Exam Vital Signs Date Time Temp Pulse Resp B/P (MAP) Pulse Ox O2 Delivery O2 Flow Rate FiO2 07/14/20 15:55 97.3 55 18 144/72 (96) 95 Room Air Sp02 EP Interpretation: reviewed, normal General Appearance: no apparent distress, alert, GCS 15, non-toxic Head: normocephalic, atraumatic Eyes: bilateral eye normal inspection, bilateral eye PERRL ENT: hearing grossly normal, normal pharynx, normal voice, TMs + canals normal, uvula midline, other - otitis media of the left TM, excessive cerumen as well. No external tenderness. the Right TM and Canal are WNL. Neck: full range of motion Respiratory: lungs clear, normal breath sounds, speaking full sentences Cardiovascular #1: regular rate, rhythm Musculoskeletal: back normal, normal range of motion, gait/station normal, non-tender Neurologic: alert, motor strength/tone normal, oriented x3, sensory intact, responsive, speech normal Psychiatric: judgement/insight normal Skin: no rash, normal color Lymphatic: no adenopathy Procedures Additional Procedure Procedure Narrative Verbal consent was obtained by the pt. Excessive cerumen was removed maually from the left ear canal using sterile ear curette. Scant amount remains deeper in the canal, TM is now visualized. The patient tolerated well and there were no complications. Medical Decision Making PA Attestation Dr. Dickey is my supervising Physician whom patient management has been discussed with. Diagnostic Impression: Primary Impression: Otitis media Qualified Codes: H66.92 - Otitis media, unspecified, left ear Additional Impression: Excessive cerumen in left ear canal ER Course 55 YO Female presents to the ED c/o 05/31 in severity left ear pain that has progressed over 5 days. Pt. reports she has been taking Tylenol PO and it helps but her pain returns. Pt. reports she attempted to use a q-tip but did not have any relief, just exacerbation of her pain. Pt. states she has not measured any fevers. She reports chills. She denies neck pain or stiffness. Pt. denies STEVENS. She denies swollen tender lymph nodes. Pt. Denies external ear tenderness. She denies d/c. She denies loss of hearing in the affected ear. Ddx considered but are not limited to OM, OE, mastoiditis, TM perforation, FB, excessive cerumen Vital signs: are WNL, pt. is afebrile H&PE are most consistent with otitis media of the left TM- the TM is erythematous and bulging, excessive cerumen as well. No external tenderness. the Right TM and Canal are WNL. ORDERS: none required at this time, the diagnosis is clinical ED INTERVENTIONS: None required at this time. DISCHARGE: At this time pt. is stable for d/c to home. With PO ABX. Will provide printed patient care instructions, and any necessary prescriptions. Care plan and follow up instructions have been discussed with the patient prior to discharge. Last Vital Signs Date Time Temp Pulse Resp B/P (MAP) Pulse Ox O2 Delivery O2 Flow Rate FiO2 07/14/20 16:04 97.3 86 18 144/72 95 Room Air Status: improved Disposition: HOME, SELF-CARE Condition: Stable Scripts Amoxicillin/Potassium Clav 400-57 Tab Chew (AMOX TR-K CLV 400-57 TAB CHEW) 1 Each Tab.chew 2 TAB ORAL EVERY 12 HOURS for 10 Days, #40 TAB Prov: Susana Moseley 07/14/20 Referrals: [facility] Patient Instructions: Cerumen Impaction, Otitis Media, Adult, [id number] Additional Instructions: Take medications as directed. Follow up with a Primary Care Provider in 3-5 days, even if your symptoms have resolved. --Please review list of primary care clinics, if you do not already have a primary care provider Return sooner to ED if new symptoms occur, or current symptoms become worse. - Please note that this Emergency Department Report was dictated using [employer]circulation analyst technology software, occasionally this can lead to erroneous entry secondary to interpretation by the dictation equipment. Susana Moseley Jul 14, 2020 16:18
[2020-07-14] MEDS ORDERED: AUGMENTIN 875-1 EAC1 ORAL (16:22)
[2020-07-14 16:30] VITALS: BP 144/72
[2020-07-14] MEDS ORDERED: AMOX TR-K CLV1 EAC3 ORAL (19:49)
== END 2020-07-14 16:30 | disposition home or self-care (01) ==
LOC: EMR 15:55
DX: H66.92 Otitis media, unspecified, left ear (principal); H61.22 Impacted cerumen, left ear; Z90.710 Acquired absence of both cervix and uterus; Z85.3 Personal history of malignant neoplasm of breast; Z88.8 Allergy status to other drugs, medicaments and biological substances
CPT/HCPCS: 69210; Z7502; 99282

== ENCOUNTER 2020-09-01 13:44 | Emergency (ER) | payer MEDICAID ==
[~2020-09-01] VITALS: Ht 160 cm; Wt 52.2 kg
[~2020-09-01 13:44] MED LIST changes: +AMOX TR-K CLV1 EAC3 ORAL; +AUGMENTIN 875-1 EAC1 ORAL
[2020-09-01 13:55] VITALS: BP 125/80
--- NOTE | 2020-09-01 13:55 | NUR ---
ED Nurse Note: Patient walked in to ER due to left earache x 2 days. Denies difficulty hearing. AAOx4,verbally responsive. No SOB, on room air. Afebrile.
--- NOTE | 2020-09-01 14:19 | Emergency Room Report ---
History of Present Illness General Chief Complaint: Earache Present Illness HPI Pt. presents to the ED c/o 6/10 in severity intermittent 5/10 in severity Left ear pain x 3 day(s). PT. w. hx of increased ear wax often. PT. reports environmental allergies. She reports having some nasal congestion a few days prior. She denies external ear tenderness. She denies fevers or chills. She denies ringing in the ears or loss of hearing. She denies cough, ST, neck pain/stiffness. She denies STEVENS or dizziness. Pt. denies ear trauma. She reports pain is intermittent and resolves spontaneously. Allergies: Coded Allergies: METOCLOPRAMIDE (Verified Adverse Reaction, Intermediate, 10/08/13) panick attack after taking reglan COVID-19 Screening Contact w/high risk pt: No Experienced COVID-19 symptoms?: No COVID-19 Testing performed PHARMACY COORDINATOR: No Patient History Past Medical History: see triage record Past Surgical History: none Pertinent Family History: none Now: No Reviewed Nursing Documentation: PMH: Agreed; PSxH: Agreed Nursing Documentation-PMH Hx Hypertension: No Hx Pacemaker: No Hx Asthma: No Hx Cancer: Yes - Left Breast CA: Left breast Lumpectomy 2011 Hx Gastrointestinal Problems: Yes - Hysterectomy 2012, Pancreatitis, GERD Hx Dialysis: No Hx Cerebrovascular Accident: No Hx Seizures: No Review of Systems All Other Systems: negative except mentioned in HPI Physical Exam Vital Signs Date Time Temp Pulse Resp B/P (MAP) Pulse Ox O2 Delivery O2 Flow Rate FiO2 09/01/20 13:47 98.4 67 18 125/80 (95) 96 Room Air Sp02 EP Interpretation: reviewed, normal General Appearance: no apparent distress, alert, GCS 15, non-toxic Head: normocephalic, atraumatic Eyes: bilateral eye normal inspection, bilateral eye PERRL ENT: hearing grossly normal, normal pharynx, normal voice, uvula midline, other - mild increased cerumen, Normal TM and Canal Bilaterally. NO external ear tenderness. no evidence of mastoiditis. Neck: full range of motion, no meningismus, no bony tend Respiratory: lungs clear, normal breath sounds, speaking full sentences Cardiovascular #1: regular rate, rhythm Musculoskeletal: back normal, normal range of motion, gait/station normal, non- tender Neurologic: alert, motor strength/tone normal, oriented x3, sensory intact, responsive, speech normal Psychiatric: judgement/insight normal Lymphatic: no adenopathy Medical Decision Making PA Attestation Dr. Dickey is my supervising Physician whom patient management has been discussed with. Diagnostic Impression: Primary Impression: Excessive cerumen in left ear canal ER Course Pt. presents to the ED c/o 6/10 in severity intermittent 5/10 in severity Left ear pain x 3 day(s). PT. w. hx of increased ear wax often. PT. reports environmental allergies. She reports having some nasal congestion a few days prior. She denies external ear tenderness. She denies fevers or chills. She denies ringing in the ears or loss of hearing. She denies cough, ST, neck pain/stiffness. She denies STEVENS or dizziness. Pt. denies ear trauma. She reports pain is intermittent and resolves spontaneously. Ddx considered but are not limited to OM, OE, mastoiditis, TM perforation, FB Vital signs: are WNL, pt. is afebrile H&PE are most consistent with otitis media ORDERS: none required at this time, the diagnosis is clinical -OTOSCOPY: mild increased cerumen, Normal TM and Canal Bilaterally. NO external ear tenderness. no evidence of mastoiditis. ED INTERVENTIONS: None required at this time. DISCHARGE: At this time pt. is stable for d/c to home. With Conservative tx.. Will provide printed patient care instructions, and any necessary prescriptions. Care plan and follow up instructions have been discussed with the patient prior to discharge. Last Vital Signs Date Time Temp Pulse Resp B/P (MAP) Pulse Ox O2 Delivery O2 Flow Rate FiO2 09/01/20 13:55 98.4 67 18 125/80 96 Room Air Status: improved Disposition: HOME, SELF-CARE Condition: Stable Scripts Carbamide Peroxide (Ear Drops) 15 Ml Drops 15 ML OT BID, #15 ML Prov: Susana Moseley 09/01/20 Pseudoephedrine Hcl (NASAL DECONGESTANT) 30 Mg Tablet 30 MG PO Q6HR for 5 Days, #20 TAB Prov: Susana Moseley 09/01/20 Referrals: NON PHYSICIAN (PCP) Patient Instructions: Cerumen Impaction Additional Instructions: Take medications as directed. Follow up with a Primary Care Provider in 3-5 days, even if your symptoms have resolved. Return sooner to ED if new symptoms occur, or current symptoms become worse. - Please note that this Emergency Department Report was dictated using [employer] pump operator technology software, occasionally this can lead to erroneous entry secondary to interpretation by the dictation equipment. Susana Moseley Sep 01, 2020 14:19
[2020-09-01] MEDS ORDERED: MURINE EAR DROP15 ML OT (14:20)
[2020-09-01] MEDS ORDERED: NASAL DECONGEST30 MG PO (14:20)
[2020-09-01 14:28] VITALS: BP 125/80
--- NOTE | 2020-09-01 14:28 | NUR ---
ED Nurse Note: Pt cleared by ERPA for discharge. DC instructions was given and explained to pt and verbalized understanding of teachings. /prescription sent to pharmacy of choice. All medical deviecs such as ID band removed. Pt is AAO x4, ambulatory and left with all personal belongings.
== END 2020-09-01 14:28 | disposition home or self-care (01) ==
LOC: EMR 14:06
DX: H61.22 Impacted cerumen, left ear (principal); Z90.710 Acquired absence of both cervix and uterus; Z85.3 Personal history of malignant neoplasm of breast; Z88.8 Allergy status to other drugs, medicaments and biological substances
CPT/HCPCS: 99282